=== PATIENT | female | born 1980 | race Caucasian/White ===

== ENCOUNTER 2017-06-24 09:16 | Emergency (ER) | payer SELFPAY ==
[~2017-06-24] VITALS: Ht 157.5 cm; Wt 95.3 kg
[~2017-06-24 09:16] MED LIST: CLIN300C3 PO; FERR325C PO; HYDR-1231 PO; NAPR-243 PO
--- OUTSIDE RECORDS SUMMARY | 2017-06-24 09:22 | XMS REPORT | Continuity of Care Document ---
Author Author [facility] Organization [facility] Address Unknown Phone Unavailable Allergies Active Description Code Type Severity Reaction Onset Reported/Identified Relationship to Patient Clinical Status Yes No Known Drug Allergies [id number] Drug Allergy Unknown N/A 10/07/2009 Medications There is no data. 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 Results There is no data. Encounters ACCT No. Visit Date/Time Discharge Status Pt. Type Provider Facility Loc./Unit Complaint [id number] 03/06/2014 15:05:00 03/06/2014 15:50:00 DIS Emergency REUBEN BE APRN [facility] ER [id number] 10/07/2009 10:01:00 Document Registration [id number] 03/24/2014 13:48:00 03/24/2014 23:59:59 CLS Outpatient PETER ANDREWS DO
[2017-06-24] MEDS ORDERED: AMOX500C2 PO (09:44)
--- NOTE | 2017-06-24 09:44 | ED EENT ---
History of Present Illness General Chief Complaint: Dental Problems/Pain Stated Complaint: L SIDE FACE SWELLING STARTED TODAY Nursing Triage Note: ARRIVED VIA AMB TO ROOM 05. STATES SHE HAD MILD DENTAL PAIN YESTERDAY AND WOKE UP THIS AM AND THE LEFT SIDE OF HER FACE WAS SWOLLEN. Source: patient Exam Limitations: no limitations History of Present Illness Date Seen by Provider: Jun 24, 2017 Time Seen by Provider: 09:26 Initial Comments Patient presents to ER by private conveyance with a chief complaint of waking up this morning with some swelling on the left side of her face. She has a bad tooth on her upper left side that has been only off and on getting her some sharp occasional short-lived pains. She had one sharp pain last night and she is not really having pain today just a lot of swelling. She no she has to get this tooth taken care of. She has had swelling and abscess in the past on her left lower jaw. She does not have plans to see a dentist yet but she will call Monday. She is not having fevers, chills, nausea, vomiting, headache, drainage, discharge, blood in the mouth, difficulty swallowing or breathing. Allergies and Home Medications Allergies Coded Allergies: No Known Drug Allergies (Unverified , 10/07/09) Home Medications No Active Prescriptions or Reported Meds Review of Systems Constitutional: No chills, No diaphoresis Eyes: Denies Blurred Vision, Denies Drainage Ears: Denies Dizziness, Denies Pain, Denies Tinnitus Nose: denies clots, denies congestion, denies clear discharge Mouth: see HPI, denies clots, denies loose teeth, pain (occasional), swelling, denies bloody discharge, denies clear discharge, denies purulent discharge, denies serosanguinous discharge Throat: denies pain, denies swelling, denies discharge Respiratory: No short of breath, No stridor Past [id number]-[id number] Hx Patient Social History Alcohol Use: Denies Use Recreational Drug Use: No Smoking Status: Never a Smoker Recent Foreign Travel: No Contact w/Someone Who Travel: No Recent Infectious Disease Expo: No Surgeries History of Surgeries: Yes Surgeries: Tonsillectomy Respiratory History of Respiratory Disorde: No Cardiovascular History of Cardiac Disorders: No Neurological History of Neurological Disord: No Genitourinary History of Genitourinary Disor: No Gastrointestinal History of Gastrointestinal Di: No Musculoskeletal History of Musculoskeletal Dis: No Endocrine History of Endocrine Disorders: No HEENT History of HEENT Disorders: No Cancer History of Cancer: No Did You Recieve Any Treatments: No Psychosocial History of Psychiatric Problem: No Integumentary History of Skin or Integumenta: No Physical Exam Vital Signs Vital Signs - First Documented 06/24/17 09:20 Temp 97.7 Pulse 84 Resp 18 B/P (MAP) 131/91 (104) Pulse Ox 98 General Appearance: WD/WN, no apparent distress Eyes: bilateral eye normal inspection, bilateral eye PERRL, bilateral eye EOMI Ears: right ear TM normal, left ear erythema (mild injection with mostly clear TM and normal landmarks seen), bilateral ear auricle normal, bilateral ear canal normal Nose: normal inspection, No active bleeding, No discharge Mouth/Throat: dental tenderness (left first more molar that gingiva is tender to palpation and mildly swollen; there are multiple dental caries.) Neck: non-tender, full range of motion, supple, normal inspection 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 There is no pain. We will Put her on amoxicillin and have her follow up with dental. Departure Impression Impression: Primary Impression: Dental caries Additional Impression: Left facial swelling Disposition: 01 HOME, SELF-CARE Condition: Stable Departure-Patient Inst. Decision time for Depature: 09:42 Referrals: NO,LOCAL PHYSICIAN (PCP/Family) Primary Care Physician Patient Instructions: Tooth Abscess (DC) Add. Discharge Instructions: Drink plenty of fluids and bulk picker the amoxicillin and take one capsule 3 times a day for one week. U can use Belgian yogurt or probiotics twice a day to prevent yeast infections and loose stools while on the antibiotics which are typical side effects of any antibiotic. If you begin did develop fever despite 3 or more days on the antibiotics you should return to care. Otherwise plan on calling your dentist Monday and setting up an appointment to have this addressed. All discharge instructions reviewed with patient and/or family. Voiced understanding. Scripts Amoxicillin (Amoxicillin) 500 Mg Capsule 500 MG PO TID, #21 CAP 0 Refills Prov: SHYLA ANTONIO 06/24/17 SHYLA ANTONIO Jun 24, 2017 09:44
[2017-06-24 09:45] VITALS: BP 131/91
== END 2017-06-24 09:45 | disposition home or self-care (01) ==
LOC: EDUNIT# 09:16 → ER 09:16
DX: K02.9 Dental caries, unspecified (principal); Z90.89 Acquired absence of other organs
CPT/HCPCS: 99282